=== PATIENT | male | born 1950 | race Caucasian/White ===

== ENCOUNTER → 2018-01-08 10:21 | Day surgery (SDC) | payer MEDICARE ==
[~2018-01-08 10:21] MED LIST: Acetaminophen TAB* 325 MG PO PRN; Buffered Lidocaine 0.9% SYRIN* 5 ML/SYR SYRINGE INTRADERM ONE; Bupivacaine 0.5% SDV PF* 30ML VIAL ONE; DiMENhydriNATE IV* 50 MG/ML VIAL IV PUSH PRN; Famotidine IV* 10 MG/ML 2 ML (20 mg) IV ONE; Famotidine IV* 10 MG/ML 2 ML (20 mg) ONE; Ketorolac INJ* 30 MG/ML 1 ML VIAL ONE; Lidocaine 2% PF * 5 ML VIAL ONE; Midazolam* 1 MG/ML 5 ML VIAL (5 MG) ONE; Morphine VIAL* 10 MG/ML 1 ML VIAL ONE; Naloxone* 0.4 MG/ML 1 ML VIAL IV PRN; Ondansetron INJ* 2 MG/ML VIAL ONE; Propofol* 10 MG/ML 20 ML BTL IV PUSH ONE; ceFAZolin 2 GM PREMIX in ORs 2 GM/50 ML BAG IVPB ONE; fentaNYL* 50 MCG/ML 2 ML VIAL (100 MCG VIAL) ONE; oxyCODONE TAB* 5 MG TAB PO PRN
[2018-01-08 12:53] VITALS: BP 117/68
--- NOTE | 2018-01-08 13:41 | OP ---
Operative Report - Blank - Operative Report Date of Operation: 01/08/18 Note: PATIENT: Jared Najera DATE OF : 1950 DATE OF SURGERY: 01/08/2018 SURGEON: Colin Stephen MD DIGITAL CAMERA TECHNICIAN: MERY Haley, whos assistance was necessary for positioning, retraction, help with instrumentation, and closure. ANESTHESIOLOGIST: Dr. 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 INDICATIONS FOR PROCEDURE: Grady has a right posterior heel wound that has worsened and MRI showed underlying calcaneal osteomyelitis. Both operative and non-operative treatment alternatives were reviewed. Further, the nature and risks of surgery were reviewed in careful detail. Our discussions regarding the risks of surgery included, but were not limited to, worsening or persistent infection, wound problems, nerve injury, neuroma, RSD, persistent symptoms, blood clot, need for further surgery, amputation, failure of the surgery, and even the remote chance of catastrophic complication, including loss of limb. DESCRIPTION OF PROCEDURE: The patient was seen in the preoperative holding unit and informed written consent was obtained. The appropriate extremity was marked. The patient was then brought to the operating room and carefully positioned on the operating room table. Anesthesia was induced. All bony prominences were padded with great care. A chlorhexidine based pre-scrub was performed followed by a betadine prep and drape in standard sterile fashion. A surgical safety pause was then conducted in which we confirmed the appropriate patient, extremity, planned procedure, availability of equipment, indication and administration of prophylactic antibiotics. I began by sharply excising the margins of the ulcer. I then sharply excised any nonviable appearing tissue in the wound, including skin, subcutaneous tissue , Achilles tendon and periosteum with a 15 blade scalpel. There was no ezekiel purulence found in the wound. The debridement exposed the posterior aspect of the calcaneus. I then performed a saucerization of the calcaneus using osteotomes and a rongeur. The saucerization was brought back to healthier appearing, bleeding bone. Culture swabs and calcaneus bone were sent to microbiology. Calcaneus bone was also sent to pathology. The wound was then copiously irrigated with sterile saline. The wound measured 33 mm in length, 27 mm in width, and 15 mm in depth. A wound VAC was then placed into the wound. This held good suction. I then dressed his other ulcer on the plantar foot with a saline wet-to-dry dressing. The patient was then awakened from anesthesia and transferred to the recovery room in stable condition. There were no complications. All needle and sponge counts were correct at the end of the case. ATTESTATION: I attest I was present and scrubbed and performed the critical portions of the procedure myself. POSTOPERATIVE PLAN: She will remain nonweightbearing. VAC changes every 3 days. I have reached out to Dr. Cuevas of infectious diseases to help coordinate antibiotics.
== END | disposition home or self-care (01) ==
LOC: OR 10:21
PROVIDERS: ATTEND Orthopaedic Surgery
DX: M86.671 Other chronic osteomyelitis, right ankle and foot (principal); E11.621 Type 2 diabetes mellitus with foot ulcer; Z87.891 Personal history of nicotine dependence; Z85.46 Personal history of malignant neoplasm of prostate; E11.42 Type 2 diabetes mellitus with diabetic polyneuropathy; E78.5 Hyperlipidemia, unspecified; G47.33 Obstructive sleep apnea (adult) (pediatric); F41.8 Other specified anxiety disorders; D64.9 Anemia, unspecified
CPT/HCPCS: 87070; 87073; 87077; 87186; 87205; 88304; 88311; J0690; J1885; J2250; J2270; J2405; J2704; J3010

== ENCOUNTER 2023-03-11 08:56 | Inpatient (IN) ==
[~2023-03-11 08:56] MED LIST changes: -Acetaminophen TAB* 325 MG PO PRN; -Buffered Lidocaine 0.9% SYRIN* 5 ML/SYR SYRINGE INTRADERM ONE; +Buffered Lidocaine 1% SYRIN 1 ml INTRADERM ONE; -Bupivacaine 0.5% SDV PF* 30ML VIAL ONE; -DiMENhydriNATE IV* 50 MG/ML VIAL IV PUSH PRN; -Famotidine IV* 10 MG/ML 2 ML (20 mg) IV ONE; -Famotidine IV* 10 MG/ML 2 ML (20 mg) ONE; -Ketorolac INJ* 30 MG/ML 1 ML VIAL ONE; +Lactated Ringers 1000 ml BAG 1,000 ML IV SCH; -Lidocaine 2% PF * 5 ML VIAL ONE; -Midazolam* 1 MG/ML 5 ML VIAL (5 MG) ONE; -Morphine VIAL* 10 MG/ML 1 ML VIAL ONE; +Naloxone 0.4 mg VIAL 0.4 mg/ml 1 ml VIAL IV PRN; -Naloxone* 0.4 MG/ML 1 ML VIAL IV PRN; -Ondansetron INJ* 2 MG/ML VIAL ONE; -Propofol* 10 MG/ML 20 ML BTL IV PUSH ONE; -ceFAZolin 2 GM PREMIX in ORs 2 GM/50 ML BAG IVPB ONE; -fentaNYL* 50 MCG/ML 2 ML VIAL (100 MCG VIAL) ONE; -oxyCODONE TAB* 5 MG TAB PO PRN
[2023-03-11] MEDS ORDERED: ceFAZolin 2 GM PREMIX 2 GM/50 ML BAG ONE (09:41)
[2023-03-11] MEDS ORDERED: Buffered Lidocaine 1% SYRIN 1 ml ONE (09:42)
[2023-03-11 10:11] LABS: Rapid COVID-19 Molecular Undetected (Undetected)
[2023-03-11] MEDS ORDERED: Lidocaine 2% PF 5 ML VIAL ONE (10:45)
[2023-03-11] MEDS ORDERED: Propofol 10 MG/ML 20 ML BTL ONE (10:45)
[2023-03-11] MEDS ORDERED: fentaNYL 250 mcg/5 ml 50 MCG/ML 5 ml VIAL (250 MCG) ONE (10:55)
[2023-03-11] MEDS ORDERED: Bupivacaine 0.5% SDV PF 30ML VIAL ONE (11:43)
[2023-03-11] MEDS ORDERED: Midazolam 2 mg/2 ml VIAL 1 mg/ml 2 ml VIAL (2 mg) ONE (12:04)
[2023-03-11] MEDS ORDERED: Sevoflurane BOTTLE ONE (12:14)
[2023-03-11] MEDS ORDERED: Sterile Water for Inj 10 ML ONE (12:21)
[2023-03-11] MEDS ORDERED: Acetaminophen IV 1 GM/100ML 1,000 MG/100 ML BAG IV ONE (12:26)
[2023-03-11] MEDS ORDERED: Ondansetron 4 mg VIAL 2 MG/ML 2 ml VIAL ONE (12:30)
[2023-03-11] MEDS ORDERED: Dexamethasone IV 4 MG/ML VIAL 1 ml VIAL ONE (12:30)
[2023-03-11] MEDS ORDERED: HYDROmorphone 0.5 MG/0.5 ML SYRINGE ONE (12:39)
[2023-03-11] MEDS ORDERED: Ondansetron ODT 4 mg TAB 4 MG TAB PO PRN (13:44)
[2023-03-11] MEDS ORDERED: Magnesium Hydroxide LIQ 30 ML UDC PO PRN (13:44)
[2023-03-11] MEDS ORDERED: Ondansetron 4 mg VIAL 2 MG/ML 2 ml VIAL IV PRN (13:44)
[2023-03-11] MEDS ORDERED: Lactulose 30 ml UDC PO PRN (13:44)
[2023-03-11] MEDS ORDERED: Morphine 2 MG/ML SYRINGE IV PRN (13:44)
[2023-03-11] MEDS ORDERED: Dextrose 50% Syringe 50 ml 25 GM/50 ML SYRINGE IV PUSH PRN (13:58)
[2023-03-11] MEDS ORDERED: fentaNYL 100 mcg/2 ml 50 MCG/ML VIAL ONE (14:25)
[2023-03-11] MEDS: fentaNYL 100 mcg/2 ml 50 MCG/ML VIAL IV PRN ×3 (14:27→14:58)
[2023-03-11] MEDS ORDERED: Naloxone 0.4 mg VIAL 0.4 mg/ml 1 ml VIAL IV PRN (14:46)
[2023-03-11] MEDS ORDERED: fentaNYL 100 mcg/2 ml 50 MCG/ML VIAL IV PRN (14:46)
[2023-03-11] MEDS: Lactated Ringers 1000 ml BAG 1,000 ML IV SCH (16:19)
[2023-03-11] MEDS: ceFAZolin 1 GM ADVAN 1 GM in NS 0.9% 50 ML 50 ML IVPB SCH (18:01)
[2023-03-11] MEDS: Magnesium Hydroxide LIQ 30 ML UDC PO SCH (21:02)
[2023-03-12] MEDS: ceFAZolin 1 GM ADVAN 1 GM in NS 0.9% 50 ML 50 ML IVPB SCH ×2 (02:01→09:51)
[2023-03-12] MEDS: Lactated Ringers 1000 ml BAG 1,000 ML IV SCH (03:08)
[2023-03-12 06:52] LABS: Hematocrit 24.5 % (38-53); Mean Platelet Volume 7.6 fL (7.5-11.2); Platelet Count 312 10^3/uL (150-450)
[2023-03-12 07:25] LABS: Calcium 8.3 mg/dL (8.6-10.3); Creatinine, Serum 1.09 mg/dL (0.67-1.17); Potassium 3.9 mmol/L (3.5-5.0); eGFR CKD-EPI 72.1 (>60)
[2023-03-12] MEDS: MAGNESIUM CITRATE 100 MG PO SCH (08:39)
[2023-03-12] MEDS: Vitamin THERAPEUTIC TAB PO SCH (08:39)
[2023-03-12] MEDS: Magnesium Hydroxide LIQ 30 ML UDC PO SCH ×2 (08:39→20:23)
[2023-03-12] MEDS ORDERED: Enoxaparin 40 MG/0.4 ML SYR SUBCUT SCH (12:00)
[2023-03-12] MEDS: Enoxaparin 40 MG/0.4 ML SYR SUBCUT SCH (12:27)
[2023-03-13 06:35] LABS: Platelet Count 354 10^3/uL (150-450)
[2023-03-13 06:56] LABS: Hematocrit 26.4 % (38-53); Hemoglobin 8.7 g/dL (13.2-16.3); Mean Platelet Volume 7.7 fL (7.5-11.2)
[2023-03-13] MEDS: MAGNESIUM CITRATE 100 MG PO SCH (08:43)
[2023-03-13] MEDS: Magnesium Hydroxide LIQ 30 ML UDC PO SCH ×2 (08:58→22:54)
[2023-03-13] MEDS: Vitamin THERAPEUTIC TAB PO SCH (08:59)
[2023-03-13] MEDS: Amoxicillin/Clavul 500/125 TAB (Augmentin 500 mg tab) PO SCH ×2 (11:48→21:23)
[2023-03-13] MEDS: Enoxaparin 40 MG/0.4 ML SYR SUBCUT SCH (11:49)
[2023-03-14 05:57] LABS: Platelet Count 426 10^3/uL (150-450)
[2023-03-14 06:16] LABS: Hematocrit 29.5 % (38-53); Hemoglobin 9.6 g/dL (13.2-16.3); Mean Platelet Volume 7.5 fL (7.5-11.2)
[2023-03-14] MEDS: MAGNESIUM CITRATE 100 MG PO SCH (09:37)
[2023-03-14] MEDS: Vitamin THERAPEUTIC TAB PO SCH (09:37)
[2023-03-14] MEDS: Magnesium Hydroxide LIQ 30 ML UDC PO SCH (09:38)
[2023-03-14] MEDS: Amoxicillin/Clavul 500/125 TAB (Augmentin 500 mg tab) PO SCH (09:41)
[2023-03-14 10:07] VITALS: BP 158/79
[2023-03-14] MEDS: Enoxaparin 40 MG/0.4 ML SYR SUBCUT SCH (14:26)
== END 2023-03-14 15:10 | disposition home or self-care (01) | DRG 475 ==
LOC: SSU 08:56 → OR 08:56 → OBSVTOIN 13:44
PROVIDERS: ADMIT Orthopaedic Surgery; ATTEND Orthopaedic Surgery
PROC: O.ORAMP (2023-03-11 11:00)